=== PATIENT | male | born 1975 | race Caucasian/White ===

== ENCOUNTER 2021-08-09 14:37 | Outpatient (CLI) | payer OTHER ==
[2021-08-09] MEDS ORDERED: GADOBUTROL 15 MMOL/15 ML VIAL ONE (15:49)
[2021-08-09] MEDS ORDERED: GADOBUTROL 15 MMOL/15 ML VIAL IVP ONE (16:51)
--- NOTE | 2021-08-18 11:37 | MRI Report ---
PROCEDURE: Brain W/WO INDICATIONS: ASTROCYTOMA ANAPLASTIC TECHNIQUE: Noncontrast axial T1 spin echo, axial T2 fast spin echo, sagittal and axial FLAIR, coronal T2 fast sp in echo, axial gradient echo, axial diffusion and ADC through the brain. After the administration of contrast, axial and coronal T1 spin echo with fat saturation through the brain. 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 Postcontrast images demonstrate no abnormal enhancement within the intracranial compartment. There is similar FLAIR sign al abnormality surrounding the resection cavity without significant change from the prior study. Scat tered areas of increased T2/FLAIR signal within the deep and periventricular white matter are nonspec ific, presumably reflecting some combination of microvascular ischemic changes and potentially postra diation sequela. A component of nonenhancing tumor especially remote from the resection cavity cannot be strictly excluded, however there has not been significant interval change from the prior study an d this is considered unlikely. IMPRESSION: Stable exam with no evidence of disease progression. No abnormal intracranial enhancement. FLAIR sign al abnormality surrounding the resection cavity is similar to the comparison study. Reviewed by: Brayan Rucker MD on 08/18/2021 11:36 AM PST Approved by: Brayan Rucker MD on 08/18/2021 11:36 AM PST Station ID: [id number]
== END 2021-08-09 14:38 | disposition home or self-care (01) ==
LOC: DI 14:37
PROVIDERS: ATTEND Registered Nurse Medical-Surgical
DX: C71.9 Malignant neoplasm of brain, unspecified (principal)
CPT/HCPCS: 70553; A9585

== ENCOUNTER 2021-10-27 08:39 | Emergency (ER) | payer OTHER ==
--- NOTE | 2021-10-27 08:58 | ED Physician Documentation ---
PD HPI FOCAL NEURO - Stated complaint Stated Complaint: RT SIDE NUMBNESS - Chief complaint Chief Complaint: Neuro - History obtained from History obtained from: Patient - History of Present Illness Timing - onset: Today Timing - duration: Hours Timing - details: Gradual onset (onset of right face and arm numbness with feeling some fumbly. No weakness per se. RIght sided headache today subsequently. Has had migraines in the past with associated numbness, but has been left sided POE and symptoms in the past.), Still present Weakness: Face. No: Arm, Leg Numbness: Face, Arm, Hand, Right Associated symptoms: Headache. 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 Gets left sided migraines occasionally. Has not had right headache since tumor.) Review of Systems Constitutional: denies: Fever, Chills Eyes: reports: Decreased vision Nose: denies: Rhinorrhea / runny nose, Congestion Throat: denies: Sore throat Respiratory: denies: Cough GI: reports: Nausea. denies: Abdominal Pain Neurologic: reports: Numbness. denies: Focal weakness, Difficulty speaking PD PAST MEDICAL HISTORY - Past Medical History Cardiovascular: None Respiratory: None Neuro: Migraines Endocrine/Autoimmune: None - Present Medications Home Medications: Ambulatory Orders Medication Instructions Recorded Confirmed No Known Home Medications 10/27/21 10/27/21 - Allergies Allergies/Adverse Reactions: Allergies Allergy/AdvReac Type Severity Reaction Status Date / Time No Known Drug Allergies Allergy Verified 10/27/21 08:55 PD ED PE NORMAL - Vitals Vital signs reviewed: Yes - General General: Alert and oriented X 3, Well developed/nourished - Neck Neck: Supple, no meningeal sign, No adenopathy - Cardiac Cardiac: RRR, No murmur - Respiratory Respiratory: Clear bilaterally - Abdomen Abdomen: Soft, Non tender - Derm Derm: Normal color, Warm and dry - Neuro Neuro: Alert and oriented X 3, gameroom technician 2-12 intact, No motor deficit, No sensory deficit, Normal speech Eye Opening: Spontaneous Motor: Obeys Commands Verbal: Oriented GCS Score: 15 Results - Vitals Vitals: Vital Signs - 24 hr 10/27/21 10/27/21 10/27/21 08:46 09:00 09:30 Temperature 36.7 C Heart Rate 85 80 80 Respiratory 23 18 19 Rate Blood Pressure 159/101 H 155/107 H 160/102 H O2 Saturation 95 94 94 10/27/21 10/27/21 10/27/21 10:00 10:35 11:00 Temperature Heart Rate 74 74 74 Respiratory 13 17 19 Rate Blood Pressure 157/103 H 164/97 H 174/99 H O2 Saturation 96 96 96 Oxygen O2 Source Room air - Labs Labs: Laboratory Tests 10/27/21 10/27/21 10/27/21 09:00 09:00 09:00 WBC 3.4 L RBC 5.18 Hgb 17.8 Hct 49.4 MCV 95.4 H MCH 34.4 H MCHC 36.0 RDW 12.2 Plt Count 186 MPV 9.4 Neut # (Auto) 1.4 L Lymph # (Auto) 1.4 L [place] # (Auto) 0.4 Eos # (Auto) 0.2 Baso # (Auto) 0.0 Absolute Nucleated RBC 0.00 Nucleated RBC % 0.0 ESR 1 Sodium 138 Potassium 4.0 Chloride 105 Carbon Dioxide 21 Anion Gap 12.0 BUN 10 Creatinine 0.9 Estimated GFR (MDRD) 91 Glucose 99 Calcium 9.4 Magnesium 1.9 Total Bilirubin 1.3 H AST 33 ALT 58 Alkaline Phosphatase 60 Total Protein 7.4 Albumin 4.3 Globulin 3.1 Albumin/Globulin Ratio 1.4 Lipase 33 - Rads (name of study) head angio CT Radiology: Prelim report reviewed (post operative changes. No acute process. No vascular occlusions. ), See rad report PD MEDICAL DECISION MAKING - ED course Complexity details: reviewed results (normal post operative changes; no acute process. ), re-evaluated patient (improved headache with meds targeted toward migraine cocktail. ), considered differential (consider complex migraine just different side from prior. Their concern is for structural or vascular process in area of prior surgery. Can get CT angio to eval. ), d/w patient Departure - Departure Disposition: 01 Home, Self Care Clinical Impression: Right arm numbness Condition: Stable Record reviewed to determine appropriate education?: Yes Instructions: ED Paraesthesias Comments: Your CT scan did not show any acute abnormalities. In particular no signs of swelling, bleeding, mass-effect, flow abnormality. Unclear the cause of the numbness in your right arm but does not appear to be acute intracranial process. Consider possible peripheral nerve numbness. Otherwise consider possible aura of a migraine without the headache. See if the symptoms improve through the course of the day. Return if new or worsening symptoms or other problems. Discharge Date/Time: 10/27/21 11:23
[2021-10-27 09:30] LABS: BASOPHILS % (AUTO) 1.2 %; EOSINOPHILS # (AUTO) 0.2 10^3/uL (0.0-0.7); EOSINOPHILS % (AUTO) 4.9 %; HCT - HEMATOCRIT 49.4 % (42.0-52.0); HGB - HEMOGLOBIN 17.8 g/dL (14.0-18.0); LYMPHOCYTES # (AUTO) 1.4 10^3/uL (1.5-3.5); LYMPHOCYTES % (AUTO) 40.1 %; MEAN CORPUSCULAR HEMOGLOBIN 34.4 pg (27.0-31.0); MEAN CORPUSCULAR VOLUME 95.4 fL (80.0-94.0); MEAN PLATELET VOLUME 9.4 fL (7.4-11.4); MONOCYTES # (AUTO) 0.4 10^3/uL (0.0-1.0); MONOCYTES % (AUTO) 11.3 %; NEUTROPHILS # (AUTO) 1.4 10^3/uL (1.5-6.6); NEUTROPHILS % (AUTO) 41.6 %; PLT - PLATELET COUNT 186 10^3/uL (130-450); RED BLOOD COUNT 5.18 10^6/uL (4.70-6.10); RED CELL DISTRIBUTION WIDTH 12.2 % (12.0-15.0); WHITE BLOOD COUNT 3.4 x10^3/uL (4.8-10.8)
[2021-10-27] MEDS: KETOROLAC 30 MG/ML VIAL IVP STA (09:33)
[2021-10-27] MEDS: SODIUM CHLORIDE 0.9% 1,000 ML IV STA (09:33)
[2021-10-27] MEDS: PROCHLORPERAZINE 10 MG/2 ML VIAL IVP STA (09:37)
[2021-10-27 09:39] LABS: ALBUMIN 4.3 g/dL (3.2-5.5); ALBUMIN/GLOBULIN RATIO 1.4 (1.0-2.2); BILIRUBIN,TOTAL 1.3 mg/dL (0.2-1.0); CALCIUM 9.4 mg/dL (8.5-10.3); CREATININE 0.9 mg/dL (0.6-1.2); MAGNESIUM 1.9 mg/dL (1.7-2.8); TOTAL PROTEIN 7.4 g/dL (6.7-8.2)
[2021-10-27] MEDS ORDERED: IOVERSOL 320 50 ML VIAL ONE (10:07)
--- NOTE | 2021-10-27 10:42 | CT Report ---
PROCEDURE: ANGIO HEAD W/WO INDICATIONS: L sided facial droop CONTRAST: IV CONTRAST: Optiray 320 ml: 80 PO CONTRAST: *NO PO CONTRAST TECHNIQUE: Precontrast 4.5 mm thick angled axial sections acquired from the foramen magnum to the vertex. Afte r the administration of intravenous contrast, 1 mm thick sections acquired through the [place] of [place] is. Postcontrast 4.5 mm thick sections then re-acquired from the foramen magnum to the vertex. 3-di mensional ywgsnfr-ywgjzcqhz-acwfhuqkqw (MIP) and/or volume rendering reformats were acquired of the c entral intracranial vasculature. For radiation dose reduction, the following was used: automated ex posure control, adjustment of mA and/or kV according to patient size. COMPARISON: Correlation is made with prior brain MRI, 08/09/2021. FINDINGS: Image quality: Excellent. Anterior circulation: Intracranial internal carotid arteries are normal in size and flow. The flow within the paired anterior cerebral arteries is normal and symmetric. The flow within the middle cer ebral arteries is normal and symmetric. The anterior communicating artery is not well seen. No aneu rysms are seen. Posterior circulation: Visualized portions of the vertebral arteries demonstrate normal caliber, and join to form a normal appearing basilar artery. Flow within the posterior cerebral arteries is norm al and symmetric. No aneurysms are seen. CSF spaces: Ventricles are normal in size and shape. Basal cisterns are patent. There is a stable p resumed arachnoid cyst seen involving the left posterior aspect of the posterior fossa. Brain: Mild right lateral frontal volume loss can be seen with encephalomalacia at the site of the p rior resection. No midline shift. No intracranial bleeds or masses. [place]-white matter interface isaias ears intact. In this patient with this given history, scrutiny is given to course of the left facial nerve, including within the left parotid gland. To the limits of this CT study, no masses or other s ignificant abnormalities are seen. Skull and face: Right-sided craniotomy changes are seen. Calvarium and facial bones appear intact, w ithout suspicious lesions. Sinuses: Visualized sinuses and mastoids are clear. A left-sided daryl bullosa is incidentally not ed. IMPRESSION: A cause of left-sided facial droop is not seen. If there is strong clinical concern for a stroke, please consider a dedicated brain MRI for further e valuation (assuming that there is no contraindication to MRI). No significant intracranial abnormality is seen. No significant intracranial arterial abnormalities are seen. Right-sided craniotomy changes are seen, with stable underlying right frontal lobe resection changes. Incidental note is made of: Left posterior fossa arachnoid cyst Reviewed by: Kei Gonzalez MD on 10/27/2021 9:41 AM YULISSA Approved by: Kei Gonzalez MD on 10/27/2021 9:41 AM YULISSA Station ID: [id number]
[2021-10-27 11:02] VITALS: BP 174/99
[2021-10-27] MEDS: IOVERSOL 320 50 ML VIAL IVP ONE (15:01)
== END 2021-10-27 11:23 | disposition home or self-care (01) ==
LOC: ED 08:39
DX: R51.9 Headache, unspecified (principal); R20.0 Anesthesia of skin
CPT/HCPCS: 36415; 80053; 83690; 83735; 85025; 85651; 96374; 96375; 99282